=== PATIENT | male | born 1985 ===

== ENCOUNTER 2021-09-15 08:00 | Outpatient (CLI) | payer OTHER | END 2021-09-15 08:30 | disposition home or self-care (01) | LOC: PPH VACUNA 08:00 | PROVIDERS: ATTEND Emergency Medicine Pediatric Emergency Medicine | DX: Z23 Encounter for immunization (principal) ==

== ENCOUNTER 2021-09-25 07:00 | Day surgery (SDC) | payer OTHER ==
[2021-09-25] MEDS ORDERED: PROTONIX40 MG PO (13:17)
== END 2021-09-25 14:40 | disposition home or self-care (01) ==
LOC: AMB-ENDOS 07:00
PROVIDERS: ATTEND Surgery
DX: K29.70 Gastritis, unspecified, without bleeding (principal); K44.9 Diaphragmatic hernia without obstruction or gangrene